=== PATIENT | male | born 1950 | race Caucasian/White ===

== ENCOUNTER → 2022-08-08 | Outpatient (CLI) | payer MEDICARE ==
--- NOTE | 2022-08-08 12:16 | FL ---
EXAMINATION TYPE: FL barium swallow DATE OF EXAM: 08/08/2022 11:55 AM COMPARISON: None CLINICAL INDICATION:Male, 72 years old with history of R13.10 DYSPHAGIA; PHH, TECHNIQUE: The procedure was explained and patient history elicited. All patient questions were ans wered prior to start of procedure. Multiple spot fluoroscopic images of the esophagus were obtained a fter the oral ingestion of effervescent crystals and liquid barium as the contrast agent. Fluoroscopic time: 13 seconds Fluoroscopic images: 173 Total DAP 4063.93. FINDINGS: The esophagus demonstrates normal primary and secondary peristalsis. There is a small suspected ulcer within the distal esophagus just above the GE junction (image 23 of 173). The remaining esophageal m ucosa is smooth without evidence of focal stricture, or abnormal outpouching. Small hiatal hernia in the supine position. This reduces in the upright position. Spontaneous gastroesophageal reflux is dem onstrated. IMPRESSION: 1. Suspected small ulcer involving the distal esophagus just below the GE junction. 2. Small hiatal hernia in the supine position which reduces in the upright position. 3. Gastroesophageal reflux.
== END | disposition home or self-care (01) ==
LOC: RADUSWWP 11:21
PROVIDERS: ATTEND Surgery Plastic and Reconstructive Surgery
DX: K21.9 Gastro-esophageal reflux disease without esophagitis (principal); K44.9 Diaphragmatic hernia without obstruction or gangrene; R13.10 Dysphagia, unspecified
CPT/HCPCS: 74220

== ENCOUNTER 2022-08-11 08:51 | Day surgery (SDC) | payer MEDICARE ==
[2022-08-06 11:24] VITALS: BMI 31.9
--- NOTE | 2022-08-11 07:47 | P.GSHP ---
History of Present Illness H&P Date: 08/11/22 CHIEF COMPLAINT: GERD HISTORY OF PRESENT ILLNESS: The patient is a 72-year-old male who presents reports gastroesophageal reflux disease. Upper endoscopy was offered for further evaluation and management. PAST MEDICAL HISTORY: Please see list. PAST SURGICAL HISTORY: Please see list. MEDICATIONS: Please see list. ALLERGIES: Please see list. SOCIAL HISTORY: No illicit drug use FAMILY HISTORY: No reports of Crohn disease or ulcerative colitis. REVIEW OF ORGAN SYSTEMS: CONSTITUTIONAL: No reports of fevers or chills. GI: Denies any blood in stools or constipation. PHYSICAL EXAM: VITAL SIGNS: Stable GENERAL: Well-developed and pleasant in no acute distress. HEENT: No scleral icterus. Extraocular movements grossly intact. Moist buccal mucosa. NECK: Supple without lymphadenopathy. CHEST: Unlabored respirations. Equal bilateral excursions. CARDIOVASCULAR: Regular rate and rhythm. Distal 2+ pulses. ABDOMEN: Soft, nondistended. MUSCULOSKELETAL: No clubbing, cyanosis, or edema. ASSESSMENT: 1. Gastroesophageal reflux disease PLAN: 1. Recommend proceeding with an upper endoscopy Past Medical History Past Medical History: Diabetes Mellitus, Hyperlipidemia, Hypertension, Osteoarthritis (OA), Pulmonary Embolus (PE), Renal Disease, Sleep Apnea/CPAP/BIPAP Additional Past Medical History / Comment(s): "CKD STAGE III", USES C-PAP MACHINE, PE 11/02/15, POSSIBLE THICKENED ESOPHAGUS History of Any Multi-Drug Resistant Organisms: None Reported Past Surgical History: Bariatric Surgery, Joint Replacement, Orthopedic Surgery Additional Past Surgical History / Comment(s): LT ACHILLES TENDON REPAIR, LAP BAND, RT ELBOW SX, left knee replacement, COLONOSCOPY, Past Anesthesia/Blood Transfusion Reactions: Postoperative Nausea & Vomiting (PONV) Smoking Status: Former smoker - Past Family History Mother Additional Family Medical History / Comment(s): FROM RUPTURE ABD ANEURYSM Father Family Medical History: COPD, Myocardial Infarction ([place]), Sleep Apnea/CPAP/BIPAP Additional Family Medical History / Comment(s): EMPHYSEMA Medications and Allergies Home Medications Medication Instructions Recorded Confirmed Type Atorvastatin [Lipitor] 20 mg PO DAILY 11/02/15 08/06/22 History Multivitamins, Thera [Multivitamin 1 tab PO DAILY 11/02/15 08/06/22 History (formulary)] Cholecalciferol (Vitamin D3) 125 mcg PO DAILY 07/16/22 08/06/22 History [Vitamin D3 (125 MCG = 5,000 IU)] Losartan/Hydrochlorothiazide 1 tab PO DAILY 07/16/22 08/06/22 History [Losartan-Hctz 100-12.5 mg Tab] metFORMIN HCL [Glucophage] 850 mg PO TID 07/16/22 08/06/22 History Allergies Allergy/AdvReac Type Severity Reaction Status Date / Time adhesive Allergy Rash/Hives Verified 08/06/22 11:31
[2022-08-11] MEDS ORDERED: LACTATED RINGERS 1,000 ML IV SCH (09:07)
[2022-08-11] MEDS ORDERED: LIDOCAINE 1% (10MG/ML) FOR IV START INTRADERMA PRN (09:07)
[2022-08-11] MEDS ORDERED: ONDANSETRON 4 MG/2 ML VIAL IVP PRN (09:07)
[2022-08-11 09:20] VITALS: TEMP 97.9
[2022-08-11] MEDS ORDERED: LIDOCAINE 2% INJ 20 MG/ML (2 ML VIAL) ONE (09:51)
[2022-08-11] MEDS ORDERED: PROPOFOL 10 MG/ML 20 ML VIAL IV ONE (09:51)
[2022-08-11 10:18] VITALS: RESP 16
[2022-08-11 10:34] VITALS: BP 134/85; PULSE 78
--- NOTE | 2022-08-11 10:37 | P.PCN ---
Date of Procedure: 08/11/22 Description of Procedure: PREOPERATIVE DIAGNOSIS: Gastroesophageal reflux disease. Morbid obesity. Adjustable gastric band status POSTOPERATIVE DIAGNOSIS: Gastroesophageal reflux disease with erosive esophagitis Esophageal polyp at GE junction Diffuse acute on chronic gastric ulcers with bleeding Duodenal ulcers Morbid obesity. Gastritis. Morbid obesity. Adjustable gastric band status Diaphragmatic hiatal hernia OPERATION: Esophagogastroduodenoscopy with hot snare polypectomy at GE junction Esophagogastroduodenoscopy with biopsies along antrum, duodenum SURGEON: Kelsie Hensley MD ANESTHESIA: MAC. INDICATIONS: The patient is a 72-year-old male who presents with reflux disease. Benefits and risks of the procedure were described. Informed consent was obtained. DESCRIPTION: The patient was brought into the endoscopy suite and laid in the left lateral decubitus position. An Olympus gastroscope was passed along the posterior oropharynx down to the distal esophagus where the squamocolumnar junction was encountered at 38 cm from the incisors. Large polyp at GE junction is identified and removed using hot snare. The stomach was entered and no bile reflux was found. Additional findings are listed below. Biopsies with cold forceps were obtained of the antrum. The first through third portion of the duodenum was examined. Retroflexion of the scope confirmed Hill grade 3 lower esophageal valve. The squamocolumnar junction demonstrated LA grade C erosive esophagitis. The stomach was desufflated. The patient tolerated the procedure well. FINDINGS: Squamocolumnar junction 38 cm from the incisors. Diaphragmatic hiatus at 42 cm. Hiatal hernia, 4 cm Adjustable gastric band without erosion Gastro esophageal junction polyp, 1 cm resected with hot snare. Diffuse acute and chronic bleeding gastric ulcers along antrum biopsy obtained Diffuse gastritis Diffuse duodenitis with diffuse duodenal ulcers first and second portion of duodenum with biopsies obtained Hill grade 3 lower esophageal valve. LA grade C erosive esophagitis. RECOMMENDATIONS: Carafate 1 g twice a day for 4 weeks Omeprazole 40 mg daily Recommend repeat upper endoscopy in 4 weeks Plan - Discharge Summary Discharge Rx Participant: No New Discharge Prescriptions: New Sucralfate [Carafate] 1 gm PO BID #60 tablet Omeprazole [PriLOSEC] 40 mg PO DAILY #90 cap Continue Atorvastatin [Lipitor] 20 mg PO DAILY Multivitamins, Thera [Multivitamin (formulary)] 1 tab PO DAILY metFORMIN HCL [Glucophage] 850 mg PO TID Cholecalciferol (Vitamin D3) [Vitamin D3 (125 MCG = 5,000 IU)] 125 mcg PO DAILY Dapagliflozin Propanediol [Farxiga] 10 mg PO DAILY Losartan/Hydrochlorothiazide [Losartan-Hctz 100-12.5 mg Tab] 1 tab PO DAILY Discharge Medication List Atorvastatin [Lipitor] 20 mg PO DAILY 11/02/15 [History] Multivitamins, Thera [Multivitamin (formulary)] 1 tab PO DAILY 11/02/15 [History] Cholecalciferol (Vitamin D3) [Vitamin D3 (125 MCG = 5,000 IU)] 125 mcg PO DAILY 07/16/22 [History] Losartan/Hydrochlorothiazide [Losartan-Hctz 100-12.5 mg Tab] 1 tab PO DAILY 07/16/22 [History] metFORMIN HCL [Glucophage] 850 mg PO TID 07/16/22 [History] Dapagliflozin Propanediol [Farxiga] 10 mg PO DAILY 08/11/22 [History] Omeprazole [PriLOSEC] 40 mg PO DAILY #90 cap 08/11/22 [Rx] Sucralfate [Carafate] 1 gm PO BID #60 tablet 08/11/22 [Rx] Follow up [facility]ment(s[facility] [facility] [place] [facility] - [facility]22 Patient Instructions/Handouts: Diet for Stomach Ulcers and Gastritis (ED) Activity/Diet/Wound Care/Special Instructions: Avoid eating sharps feeds for risk of stomach perforation due to ulcers Discharge Disposition: HOME SELF-CARE
[2022-08-11 11:48] LABS: Glucose,Whole Blood 219 mg/dL (70-110)
== END 2022-08-11 11:02 | disposition home or self-care (01) ==
LOC: ORWHC2ENDO 08:51
PROVIDERS: ATTEND Surgery Plastic and Reconstructive Surgery
DX: K22.82 Esophagogastric junction polyp (principal); K29.90 Gastroduodenitis, unspecified, without bleeding; K21.00 Gastro-esophageal reflux disease with esophagitis, without bleeding; K25.0 Acute gastric ulcer with hemorrhage; K31.89 Other diseases of stomach and duodenum; K25.4 Chronic or unspecified gastric ulcer with hemorrhage; K26.9 Duodenal ulcer, unspecified as acute or chronic, without hemorrhage or perforation; K44.9 Diaphragmatic hernia without obstruction or gangrene; Z98.84 Bariatric surgery status; E11.22 Type 2 diabetes mellitus with diabetic chronic kidney disease; Z79.84 Long term (current) use of oral hypoglycemic drugs; E78.5 Hyperlipidemia, unspecified; M19.90 Unspecified osteoarthritis, unspecified site; Z86.711 Personal history of pulmonary embolism; I12.9 Hypertensive chronic kidney disease with stage 1 through stage 4 chronic kidney disease, or unspecified chronic kidney disease; N18.30 Chronic kidney disease, stage 3 unspecified; E66.9 Obesity, unspecified; Z68.32 Body mass index [BMI] 32.0-32.9, adult; G47.33 Obstructive sleep apnea (adult) (pediatric); Z99.89 Dependence on other enabling machines and devices; Z96.652 Presence of left artificial knee joint; Z98.890 Other specified postprocedural states; Z87.891 Personal history of nicotine dependence; Z82.49 Family history of ischemic heart disease and other diseases of the circulatory system; Z83.6 Family history of other diseases of the respiratory system; Z91.048 Other nonmedicinal substance allergy status
CPT/HCPCS: 88305; 43239; 43251; J2704; J2001

== ENCOUNTER → 2022-09-10 | Outpatient (CLI) | payer MEDICARE ==
[2022-09-10 14:04] VITALS: BP 132/70; PULSE 77; TEMP 98; BMI 33.7
--- NOTE | 2022-09-10 14:44 | P.BASOAP ---
Subjective Progress Note Date: 09/10/22 Needs band out. Has high grade dysplasia. Recommend band removal and ablation of barretts. Continue omeprazole Objective - Vital Signs Vital signs: Vital Signs Temp 98 F 09/10/22 14:01 Pulse 77 09/10/22 14:01 Resp BP 132/70 09/10/22 14:01 Pulse Ox FiO2 Intake & Output 09/09/22 09/10/22 09/10/22 18:59 06:59 18:59 Weight 95.708 kg Assessment/Plan Plan: Date: 09/10/22 Initial Weight: Initial BMI: Current Weight: 95.708 kg Current BMI: 33.7 Type of Surgery: Total Volume in Band: 0 Previous Volume: Volume Removed: Volume Added: Band Size:
== END ==
LOC: BARWHC3 13:00
PROVIDERS: ATTEND Surgery Plastic and Reconstructive Surgery
DX: E66.01 Morbid (severe) obesity due to excess calories (principal); Z68.33 Body mass index [BMI] 33.0-33.9, adult; Z91.048 Other nonmedicinal substance allergy status; Z88.5 Allergy status to narcotic agent; Z88.8 Allergy status to other drugs, medicaments and biological substances; Z87.891 Personal history of nicotine dependence
CPT/HCPCS: 99211

== ENCOUNTER 2022-09-29 12:39 | Observation (INO) | payer MEDICARE ==
[2022-09-24 12:02] VITALS: BMI 31.9
--- NOTE | 2022-09-29 07:54 | P.GSHP ---
History of Present Illness H&P Date: 09/29/22 CHIEF COMPLAINT: Complications from adjustable gastric band HISTORY OF PRESENT ILLNESS: The patient is a 72-year-old male with adjustable gastric band for over 5+ years. He reports severe gastroesophageal reflux disease including atypical chest pain. He had recent upper endoscopy demonstrating dysplasia of the esophagus with Logan's. He has trouble with swallowing. Due to, his adjustable gastric band, who presents for removal of adjustable gastric band PAST MEDICAL HISTORY: Please see list. PAST SURGICAL HISTORY: Please see list. MEDICATIONS: Please see list. ALLERGIES: Please see list. SOCIAL HISTORY: No illicit drug use FAMILY HISTORY: No reports of Crohn disease or ulcerative colitis. REVIEW OF ORGAN SYSTEMS: CONSTITUTIONAL: No reports of fevers or chills. GI: Has severe gastroesophageal reflux disease PHYSICAL EXAM: VITAL SIGNS: Stable GENERAL: Well-developed pleasant and in no acute distress. HEENT: No scleral icterus. Extraocular movements grossly intact. Moist buccal mucosa. NECK: Supple without lymphadenopathy. CHEST: Unlabored respirations. Equal bilateral excursions. CARDIOVASCULAR: Regular rate and rhythm. Distal 2+ pulses. ABDOMEN: Soft, nondistended. No peritoneal signs. MUSCULOSKELETAL: No clubbing, cyanosis, or edema. SKIN: Well-perfused. Good skin turgor. REPORTS: Upper endoscopy demonstrates paraesophageal hiatal hernia with Logan's esophagus PATHOLOGY: Demonstrates Logan's esophagus with dysplasia ASSESSMENT: 1. Complications from adjustable gastric band severe gastroesophageal reflux disease and Logan's esophagus PLAN: 1. Recommend proceeding with a robotic oval adjustable gastric band 2. Benefits and risks of surgical intervention was discussed including possibility of open technique. 3. DVT prophylaxis. 4. Antibiotic prophylaxis. 5. Referral to tertiary care center for high-grade Logan's disease, ablation of esophageal metaplasia Past Medical History Past Medical History: Diabetes Mellitus, Hyperlipidemia, Hypertension, Osteoarthritis (OA), Pulmonary Embolus (PE), Renal Disease, Sleep Apnea/CPAP/BIPAP Additional Past Medical History / Comment(s): Stage 3 Chronic Kidney Disease. CPAP use. History of Any Multi-Drug Resistant Organisms: None Reported Past Surgical History: Bariatric Surgery, Joint Replacement, Orthopedic Surgery Additional Past Surgical History / Comment(s): LEFT ACHILLES TENDON REPAIR, LAP BAND, RIGHT ELBOW SURGERY, left knee replacement, EGD. Past Anesthesia/Blood Transfusion Reactions: Postoperative Nausea & Vomiting (PONV) Past Psychological History: No Psychological Hx Reported Smoking Status: Former smoker Past Alcohol Use History: None Reported Additional Past Alcohol Use History / Comment(s): STARTED SMOKING AT AGE 19, SMOKED 2 PPD, QUIT IN 1994. Past Drug Use History: None Reported - Past Family History Mother Additional Family Medical History / Comment(s): FROM RUPTURE ABD ANEURYSM. Father Family Medical History: COPD, Myocardial Infarction ([place]), Sleep Apnea/CPAP/BIPAP Additional Family Medical History / Comment(s): EMPHYSEMA Sister(s) Additional Family Medical History / Comment(s): "On blood thinners for the rest of her life, had blood clots, not sure if they were in legs or lungs." Medications and Allergies Home Medications Medication Instructions Recorded Confirmed Type Multivitamins, Thera [Multivitamin 1 tab PO DAILY 11/02/15 09/24/22 History (formulary)] Losartan/Hydrochlorothiazide 1 tab PO QAM 07/16/22 09/24/22 History [Losartan-Hctz 100-12.5 mg Tab] Dapagliflozin Propanediol [Farxiga] 10 mg PO DAILY 08/11/22 09/24/22 History Atorvastatin [Lipitor] 40 mg PO DAILY 09/24/22 09/24/22 History Cholecalciferol [Vitamin D3 (25 25 mcg PO DAILY 09/24/22 09/24/22 History Mcg = 1000 Iu)] Omeprazole [PriLOSEC] 40 mg PO QAM 09/24/22 09/24/22 History metFORMIN HCL 1,000 mg PO DAILY 09/24/22 09/24/22 History Allergies Allergy/AdvReac Type Severity Reaction Status Date / Time acetaminophen [From [place]] Allergy Nausea & Verified 09/24/22 11:58 Vomiting adhesive Allergy Rash/Hives Verified 09/24/22 11:30 hydrocodone [From [place]] Allergy Nausea & Verified 09/24/22 11:58 Vomiting
[~2022-09-29 12:39] MED LIST: ACETAMINOPHEN TAB 500 MG TAB PO STA; CHLORHEXIDINE GLUCONATE 15 ML CUP MUCOUS MEM PRN; DEXAMETHASONE SOD PHOSPHATE 4 MG/ML 1 ML VIAL IV ONE; HEPARIN SODIUM,PORCINE/PF 5,000 UNIT/0.5 ML SYRINGE SQ PRN; HYDROmorphone 0.5 MG/0.5 ML SYRINGE IVP PRN; LACTATED RINGERS 1,000 ML IV SCH; ONDANSETRON 4 MG/2 ML VIAL IVP ONE; PANTOPRAZOLE 40 MG/10 ML VIAL IVP PRN
[2022-09-29 13:39] LABS: Glucose,Whole Blood 180 mg/dL (70-110)
[2022-09-29] MEDS ORDERED: fentaNYL (PF) 50 MCG/ML 2 ML AMP ONE (14:22)
[2022-09-29] MEDS ORDERED: NEOSTIGMINE 1 MG/ML 10 ML VIAL ONE (14:22)
[2022-09-29] MEDS ORDERED: GLYCOPYRROLATE 0.2 MG/ML 2 ML VIAL ONE (14:22)
[2022-09-29] MEDS ORDERED: HYDROmorphone (PF) 1 MG/ML ONE (14:22)
[2022-09-29] MEDS ORDERED: SUCCINYLCHOLINE CHLORIDE 200 MG/10 ML VIAL IV ONE (14:22)
[2022-09-29] MEDS ORDERED: LIDOCAINE 2% INJ 20 MG/ML (2 ML VIAL) ONE (14:22)
[2022-09-29] MEDS ORDERED: PROPOFOL 10 MG/ML 20 ML VIAL IV ONE (14:22)
[2022-09-29] MEDS ORDERED: MIDAZOLAM 2 MG/2 ML VIAL ONE (14:22)
[2022-09-29] MEDS ORDERED: ROCURONIUM 10 MG/ML (5 ML VIAL) IV ONE (14:22)
[2022-09-29] MEDS ORDERED: LIDOCAINE 2%-EPI 1:100,000 20 ML VIAL SQ ONE ×2 (14:58→14:59)
[2022-09-29 16:56] LABS: Basophils # (A) 0.1 k/uL (0-0.2); Basophils % (A) 1 %; Eosinophils # (A) 0.3 k/uL (0-0.7); Eosinophils % (A) 5 %; HCT 45.2 % (39.0-53.0); HGB 15.3 gm/dL (13.0-17.5); Lymphocytes # (A) 1.6 k/uL (1.0-4.8); Lymphocytes % (A) 30 %; MCH 28.9 pg (25.0-35.0); MCHC 33.8 g/dL (31.0-37.0); MCV 85.5 fL (80.0-100.0); Mean Platelet Volume 10.1; Monocytes # (A) 0.3 k/uL (0-1.0); Monocytes % (A) 6 %; Neutrophils % (A) 55 %; Platelet Count 256 k/uL (150-450); RBC 5.29 m/uL (4.30-5.90); RDW 13.3 % (11.5-15.5); WBC 5.5 k/uL (3.8-10.6)
[2022-09-29 17:01] LABS: Albumin 4.7 g/dL (3.5-5.0); Calcium 9.2 mg/dL (8.4-10.2); Potassium 4.5 mmol/L (3.5-5.1); Total Bilirubin 0.9 mg/dL (0.2-1.3); Total Protein 8.2 g/dL (6.3-8.2)
[2022-09-29] MEDS ORDERED: IBUPROFEN 600 MG TAB PO ONE (17:07)
[2022-09-29 18:22] LABS: Glucose,Whole Blood 238 mg/dL (70-110)
[2022-09-29] MEDS ORDERED: NALOXONE 0.4 MG/ML 1 ML VIAL IV PRN ×2 (19:46→19:51)
[2022-09-29] MEDS ORDERED: ONDANSETRON 4 MG/2 ML VIAL IVP PRN (19:46)
[2022-09-29] MEDS ORDERED: DEXTROSE 50% SYRINGE 50 ML IVP PRN ×2 (19:50)
[2022-09-29 19:53] VITALS: RESP 17
[2022-09-29] MEDS ORDERED: fentaNYL PCA 500 MCG/50 ML BAG IV SCH (20:00)
--- NOTE | 2022-09-29 20:10 | P.OP ---
Date of Procedure: 09/29/22 Description of Procedure: SURGEON: TOÑA SPARKS MD PREOPERATIVE DIAGNOSES: 1. Morbid obesity due to excess calories 2. Body mass index of 31.4 3. Complications from adjustable gastric band 4. 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 Dysphagia 6. Generalized anxiety disorder 7. Migraines 8. Diabetes type 2, [id number] 9. Hypertensive heart disease POSTOPERATIVE DIAGNOSES: 1. Morbid obesity due to excess calories 2. Body mass index of 31.4 3. Complications from adjustable gastric band 4. 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 Dysphagia 6. Generalized anxiety disorder 7. Migraines 8. Diabetes type 2, [id number] 9. Hypertensive heart disease OPERATION: 1. Robotic-assisted da Jessica Xi laparoscopic removal of adjustable gastric band and all components. 2. Esophagogastroduodenoscopy ANESTHESIA: General with local anesthetic. ESTIMATED BLOOD LOSS: 5 mL SPECIMENS REMOVED: 1. Adjustable gastric band fibrinous encapsulation Condition: stable Disposition: same day COMPLICATIONS: None. Operative Findings: 1. Adjustable gastric band port found along the epigastrium removed in total 2. Densely encased adjustable gastric band removed in total with fibrinous encapsulation 3. Erosive esophagitis 4. No band erosion INDICATIONS: The patient is a 72-year-old male who presents with complications of adjustable gastric band. Surgical options were described including removal of the band. As she has persistent pain and discomfort from the band, removal of the adjustable gastric band and port including all components was proposed. Benefits and risks of the procedure were described. Informed consent was obtained. DESCRIPTION: The patient was brought into the operating room theater. She was placed supine. She had received Lovenox subcutaneously for DVT prophylaxis. Additionally she Peridex oral solution as an oral decontaminant was placed per anesthesia. After general induction, the abdomen was prepped and draped in standard sterile fashion. Ioban draping was placed along the abdomen. A robotic da Jessica Xi system was prepped and primed. Prior to incision, a timeout protocol was performed and confirmed with the surgical team. Attention was brought to the abdomen where the port was palpated along the epigastrium. After localizing the skin, transverse 3 cm incision was made over the adjustable gastric band port and circumferentially dissected free using Bovie cautery and blunt dissection. Attention was now brought to the intra-abdominal component of the procedure for the removal of the adjustable gastric band. Incisions were proposed at 12 cm from the xiphoid. Proposed port sites were marked with indelible marker along the anterior axillary line bilaterally, mid clavicular line bilaterally with each port marked 10 cm from each other. A 5 mm 0 degrees laparoscopic trocar entry was performed along the left upper quadrant. The abdomen was insufflated to 15 mmHg pressure, which she tolerated well. Diagnostic laparoscopy demonstrated no injury to bowel, viscera, or mesentery. An 8 mm camera port was placed at the epigastrium, 12 cm distal to the xiphoid. Next, 8-mm port was placed along the right mid abdomen. The 5 mm port was exchanged for 12 mm trocar. Another 8 mm trocar was placed on the left lateral abdominal wall. The robot was docked along the left lateral abdomen. The patient was repositioned in reverse Trendelenburg position, 21-degrees. A 0-degree camera was used. Using graspers for arm 3, including scissors with cautery for arm 1, and hook cautery was used for arm 4. the robotic system was docked and primed as described. Instruments were interchanged by the records management assistant. I had sat at the console. Adjustable gastric band was embedded into dense cicatrix which was carefully dissected free. Additionally, the buckle of the adjustable gastric band was densely adherent to the deep tissue requiring cutting the band away from the buckle. The port was followed with its tubing to the gastric band. The gastrohepatic ligament was scarred from prior surgery. The cicatrix around the adjustable gastric band was carefully dissected free. The anti-prolapse stitch was intact. Using hot cautery, the cicatrix of the port was incised. The band was then freed. Allergan adjustable gastric band was removed in total. Care was taken to avoid any gastrotomies. The band buckle was cut. I then went to the head of the bed to perform intraoperative esophagogastroduodenoscopy to evaluate for gastritis and any full thickness injury to the stomach. An Olympus gastroscope was passed from the posterior oropharynx down to the esophagus, where the squamocolumnar junction was found LA grade C erosive esophagitis, chronic changes. The stomach was entered. Mild chronic gastritis was found along the antrum with biopsies obtained of the antrum and duodenal. Retroflexion of the scope confirmed a Hill grade 2 lower esophageal valve. No full-thickness erosion from the prior band was encountered. The stomach was desufflated. The patient tolerated the procedure well. No evidence of leak was encountered from the removal of the band. The scope was removed with desufflation of the stomach. I re-scrubbed into the case. The port and band were removed in total without injury to the stomach via the epigastrium including the cut buckle. Hemostasis was excellent. Diagnostic laparoscopy demonstrated complete removal of all foreign body. All instruments and pneumoperitoneum were evacuated from the abdominal cavity. The port extraction site was hemostatic. The port site was irrigated using normal saline and hydrogen peroxide. The incisions were reapproximated using 4- 0 Monocryl in a subcuticular interrupted fashion. Optifoam dressing was placed over the port extraction site. At the end of the procedure, needle, sponge and instrument counts were verified correct by the surgical territory manager. The patient had tolerated the procedure well. An abdominal binder was placed. The patient was transferred to Postanesthesia Care Unit in stable condition. Plan - Discharge Summary Discharge Rx Participant: No New Discharge Prescriptions: New Ibuprofen [Motrin] 600 mg PO Q8HR PRN #30 tab PRN Reason: Pain Acetaminophen Tab [Tylenol Tab] 1,000 mg PO Q6HR PRN #30 tablet PRN Reason: Pain Continue Multivitamins, Thera [Multivitamin (formulary)] 1 tab PO DAILY Dapagliflozin Propanediol [Farxiga] 10 mg PO DAILY Cholecalciferol [Vitamin D3 (25 Mcg = 1000 Iu)] 25 mcg PO DAILY metFORMIN HCL 1,000 mg PO DAILY Losartan/Hydrochlorothiazide [Losartan-Hctz 100-12.5 mg Tab] 1 tab PO QAM Atorvastatin [Lipitor] 40 mg PO DAILY Omeprazole [PriLOSEC] 40 mg PO QAM Discharge Medication List Multivitamins, Thera [Multivitamin (formulary)] 1 tab PO DAILY 11/02/15 [History] Losartan/Hydrochlorothiazide [Losartan-Hctz 100-12.5 mg Tab] 1 tab PO QAM 07/16/22 [History] Dapagliflozin Propanediol [Farxiga] 10 mg PO DAILY 08/11/22 [History] Atorvastatin [Lipitor] 40 mg PO DAILY 09/24/22 [History] Cholecalciferol [Vitamin D3 (25 Mcg = 1000 Iu)] 25 mcg PO DAILY 09/24/22 [History] Omeprazole [PriLOSEC] 40 mg PO QAM 09/24/22 [History] metFORMIN HCL 1,000 mg PO DAILY 09/24/22 [History] Acetaminophen Tab [Tylenol Tab] 1,000 mg PO Q6HR PRN #30 tablet 09/29/22 [Rx] Ibuprofen [Motrin] 600 mg PO Q8HR PRN #30 tab 09/29/22 [Rx] Follow up Appointment(s)/Ref[place](s[place] [facility] [place] - 10/03/22 9:00 am Patient Instructions/Handouts: *[facility] - Managing Your Pain After Surgery Without Opioids, *[facility] - (Anesthesia) Discharge Instructions Outpatient Surgery, Adjustable Gastric Band Removal (DC) Activity/Diet/Wound Care/Special Instructions: No lifting over 10 pounds in 2 weeks until October 13. May shower. No bath tub soaks for two weeks until October 13. Diet as tolerated. Use Tylenol, simethicone and ibuprofen or Aleve scheduled for the next 24-48 hours for best pain relief. Use ice along incisions for today to prevent swelling.
[2022-09-29 20:58] LABS: Glucose,Whole Blood 349 mg/dL (70-110)
[2022-09-29] MEDS: ALBUTEROL NEBULIZED 2.5 MG/3 ML INHALATION SCH (21:04)
[2022-09-29] MEDS: KETOROLAC 15 MG/ML 1 ML VIAL IVP SCH (21:21)
[2022-09-29] MEDS: INSULIN ASPART (NovoLOG) 100 UNIT/ML VIAL SQ SCH (21:23)
[2022-09-29] MEDS: ACETAMINOPHEN ORAL SUSP (PEDS) 3,840 MG/120 ML BOTTLE PO SCH (21:26)
[2022-09-29] MEDS: 0.9% NACL WITH KCL 20 MEQ/L 1,000 ML IV SCH (21:27)
[2022-09-30] MEDS: 0.9% NACL WITH KCL 20 MEQ/L 1,000 ML IV SCH (01:21)
[2022-09-30] MEDS: SIMETHICONE 80 MG CHEWABLE PO SCH ×2 (01:40→07:19)
[2022-09-30] MEDS: ACETAMINOPHEN ORAL SUSP (PEDS) 3,840 MG/120 ML BOTTLE PO SCH ×2 (04:19→06:35)
[2022-09-30] MEDS: KETOROLAC 15 MG/ML 1 ML VIAL IVP SCH ×2 (04:19→06:37)
[2022-09-30 06:08] LABS: Glucose,Whole Blood 217 mg/dL (70-110)
[2022-09-30] MEDS: INSULIN ASPART (NovoLOG) 100 UNIT/ML VIAL SQ SCH (06:36)
[2022-09-30 07:51] VITALS: BP 147/85; PULSE 61; TEMP 97.6
[2022-09-30] MEDS ORDERED: 0.9% NACL WITH KCL 20 MEQ/L 1,000 ML IV SCH (08:00)
[2022-09-30] MEDS ORDERED: LOSARTAN 50 MG TAB PO SCH (09:00)
[2022-09-30] MEDS ORDERED: metFORMIN 500 MG TAB PO SCH (09:00)
[2022-09-30] MEDS ORDERED: DAPAGLIFLOZIN PROPANEDIOL 10 MG TABLET PO SCH (09:00)
[2022-09-30] MEDS ORDERED: PANTOPRAZOLE 40 MG TABLET PO SCH (09:00)
[2022-09-30] MEDS ORDERED: ENOXAPARIN 30 MG/0.3 ML SYRINGE SQ SCH (09:00)
[2022-09-30] MEDS ORDERED: hydroCHLOROthiazide 12.5 MG CAP PO SCH (09:00)
[2022-09-30] MEDS: ALBUTEROL NEBULIZED 2.5 MG/3 ML INHALATION SCH (09:15)
--- NOTE | 2022-09-30 14:42 | P.DS ---
Providers Date of admission: 09/29/22 19:49 Expected date of discharge: 09/30/22 Attending physician: Kelsie Hensley Primary care physician: Jose M Vera MD Hospital Course: Discharge diagnosis 1. Morbid obesity due to excess calories 2. Body mass index of 31.4 3. Complications from adjustable gastric band 4. 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 Dysphagia 6. Generalized anxiety disorder 7. Migraines 8. Diabetes type 2, [id number] 9. Hypertensive heart disease Hospital course The patient is a 72-year-old male who presents with complications of adjustable gastric band. Patient is status post Robotic-assisted da Jessica Xi laparoscopic removal of adjustable gastric band and all components. Patient discharge was held yesterday due to transportation issue. Patient is tolerating diet. He denies any abdominal pain. He has been up and ambulating. He is afebrile. He is stable for discharge. Physician Utility Clerk note has been reviewed by physician. Signing provider agrees with the documented findings, assessment, and plan of care. Patient Condition at Discharge: Stable Plan - Discharge Summary Discharge Rx Participant: No New Discharge Prescriptions: New Ibuprofen [Motrin] 600 mg PO Q8HR PRN #30 tab PRN Reason: Pain Acetaminophen Tab [Tylenol Tab] 1,000 mg PO Q6HR PRN #30 tablet PRN Reason: Pain Continue Multivitamins, Thera [Multivitamin (formulary)] 1 tab PO DAILY Dapagliflozin Propanediol [Farxiga] 10 mg PO DAILY Cholecalciferol [Vitamin D3 (25 Mcg = 1000 Iu)] 25 mcg PO DAILY metFORMIN HCL 1,000 mg PO DAILY Losartan/Hydrochlorothiazide [Losartan-Hctz 100-12.5 mg Tab] 1 tab PO QAM Atorvastatin [Lipitor] 40 mg PO DAILY Omeprazole [PriLOSEC] 40 mg PO QAM Discharge Medication List Multivitamins, Thera [Multivitamin (formulary)] 1 tab PO DAILY 11/02/15 [History] Losartan/Hydrochlorothiazide [Losartan-Hctz 100-12.5 mg Tab] 1 tab PO QAM 07/16/22 [History] Dapagliflozin Propanediol [Farxiga] 10 mg PO DAILY 08/11/22 [History] Atorvastatin [Lipitor] 40 mg PO DAILY 09/24/22 [History] Cholecalciferol [Vitamin D3 (25 Mcg = 1000 Iu)] 25 mcg PO DAILY 09/24/22 [History] Omeprazole [PriLOSEC] 40 mg PO QAM 09/24/22 [History] metFORMIN HCL 1,000 mg PO DAILY 09/24/22 [History] Acetaminophen Tab [Tylenol Tab] 1,000 mg PO Q6HR PRN #30 tablet 09/29/22 [Rx] Ibuprofen [Motrin] 600 mg PO Q8HR PRN #30 tab 09/29/22 [Rx] Follow up Appointment(s[facility]Ref[facility] [place] - 10/03/22 9:00 am Patient Instructions/Handouts: *[facility] - Managing Your Pain After Surgery Without Opioids, *[facility] - (Anesthesia) Discharge Instructions Outpatient Surgery, Adjustable Gastric Band Removal (DC) Activity/Diet/Wound Care/Special Instructions: No lifting over 10 pounds in 2 weeks until October 13. May shower. No bath tub soaks for two weeks until October 13. Diet as tolerated. Use Tylenol, simethicone and ibuprofen or Aleve scheduled for the next 24-48 hours for best pain relief. Use ice along incisions for today to prevent swelling. Discharge Disposition: HOME SELF-CARE
== END 2022-09-30 10:55 | disposition home or self-care (01) ==
LOC: OR 12:39 → 4SSUR 15:53 → OR 18:07 → 4SSUR 19:49
PROVIDERS: ADMIT Surgery Plastic and Reconstructive Surgery; ATTEND Surgery Plastic and Reconstructive Surgery
DX: K95.09 Other complications of gastric band procedure (principal); E66.01 Morbid (severe) obesity due to excess calories; K22.719 Barrett's esophagus with dysplasia, unspecified; K21.9 Gastro-esophageal reflux disease without esophagitis; Z68.31 Body mass index [BMI] 31.0-31.9, adult; I13.10 Hypertensive heart and chronic kidney disease without heart failure, with stage 1 through stage 4 chronic kidney disease, or unspecified chronic kidney disease; I11.9 Hypertensive heart disease without heart failure; E11.22 Type 2 diabetes mellitus with diabetic chronic kidney disease; N18.30 Chronic kidney disease, stage 3 unspecified; F41.1 Generalized anxiety disorder; G43.909 Migraine, unspecified, not intractable, without status migrainosus; E78.5 Hyperlipidemia, unspecified; M19.90 Unspecified osteoarthritis, unspecified site; Z86.711 Personal history of pulmonary embolism; G47.33 Obstructive sleep apnea (adult) (pediatric); Z96.652 Presence of left artificial knee joint; Z98.890 Other specified postprocedural states; Z87.891 Personal history of nicotine dependence; Z82.49 Family history of ischemic heart disease and other diseases of the circulatory system; Z83.6 Family history of other diseases of the respiratory system; Z79.84 Long term (current) use of oral hypoglycemic drugs; Z79.899 Other long term (current) drug therapy; Z88.5 Allergy status to narcotic agent
CPT/HCPCS: 88304; 80053; 85025; 83036; 43774; G0378 ×2; J2250; J0330; J1100; J2710; J0690 ×2; J2405; J3010; J1650; J1170; J1885 ×2; J2704; C9113; J1644; J2001

== ENCOUNTER → 2022-10-03 | Outpatient (CLI) | payer MEDICARE ==
[2022-10-03 11:00] VITALS: BP 184/93; PULSE 73; RESP 12; TEMP 98; BMI 34.2
--- NOTE | 2022-10-06 21:00 | P.BASOAP ---
Subjective Progress Note Date: 10/03/22 CHIEF COMPLAINT: Morbid obesity HISTORY OF PRESENT ILLNESS: The patient is a 72-year-old male with adjustable gastric band for over 5+ years. He is status post removal of adjustable gastric band, 09/29/2022. He is post op day 4. He has no further gastroesophageal reflux disease. He is on omeprazole 40 mg twice a day. Pain is well controlled. His ideal body weight is 154 pounds for height 5 foot 6.25 inches. His highest weight is 290 pounds, body mass index of 46.6. He comes in 213 pounds from 211 pounds, 1 month ago. He he has gained 2 pounds in 1 month. His body mass index is 34.2. Lifetime weight loss of 77 pounds. Percent excess weight loss lifetime of 57%. PHYSICAL EXAM: VITAL SIGNS: Stable GENERAL: Well-developed pleasant and in no acute distress. HEENT: No scleral icterus. Extraocular movements grossly intact. Moist buccal mucosa. NECK: Supple without lymphadenopathy. CHEST: Unlabored respirations. Equal bilateral excursions. CARDIOVASCULAR: Regular rate and rhythm. Distal 2+ pulses. ABDOMEN: Soft, nondistended. No peritoneal signs. No infection. Dressing discontinued. No signs of infection. MUSCULOSKELETAL: No clubbing, cyanosis, or edema. SKIN: Well-perfused. Good skin turgor. ASSESSMENT: 1. 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 Severe gastroesophageal reflux disease 3. Logan's esophagus PLAN: 1. Continue omeprazole 40 mg twice a day. 2. Follow-up closely one week. 3. Off work for 2 weeks described. 4. Continue to wear abdominal binder. 5. Recommend referral to gastroenterology for high-grade dysplasia Logan's and ablation. Objective - Vital Signs Vital signs: Vital Signs Temp 98 F 10/03/22 10:45 Pulse 73 10/03/22 10:45 Resp 12 10/03/22 10:45 BP 184/93 10/03/22 10:45 Pulse Ox FiO2 Assessment/Plan Plan: Date: 10/03/22 Initial Weight: Initial BMI: Current Weight: 96.797 kg Current BMI: 34.2 Type of Surgery: Total Volume in Band: 0 Previous Volume: Volume Removed: Volume Added: Band Size:
== END ==
LOC: BARWHC3 09:23
PROVIDERS: ATTEND Surgery Plastic and Reconstructive Surgery
DX: E66.01 Morbid (severe) obesity due to excess calories (principal); K21.9 Gastro-esophageal reflux disease without esophagitis; K22.70 Barrett's esophagus without dysplasia; Z46.51 Encounter for fitting and adjustment of gastric lap band; Z68.34 Body mass index [BMI] 34.0-34.9, adult; Z91.048 Other nonmedicinal substance allergy status; Z88.5 Allergy status to narcotic agent; Z87.891 Personal history of nicotine dependence
CPT/HCPCS: 99211